=== PATIENT | male | born 1965 | race Caucasian/White ===

== ENCOUNTER 2021-11-25 10:10 | Outpatient (CLI) | payer MEDICARE, SELFPAY ==
[2021-11-25 11:10] LABS: Hematocrit 52.1 % (42.0-52.0); Hemoglobin 17.5 g/dL (14.0-18.0); Mean Corpuscular HGB Conc 33.6 g/dl (32-36); Mean Corpuscular Hemoglobin 31.8 pg (26-34); Mean Corpuscular Volume 94.7 fl (80-100); Platelet Count Result 171 k/mm3 (150-375); Red Cell Distribution Width 12.2 % (11.5-14.5); White Blood Count 10.9 K/mm3 (4.5-10.0)
[2021-11-25 11:28] LABS: Alanine Aminotransferase 54 U/L (6-50); Albumin Level 4.9 g/dL (3.5-5.1); Alkaline Phosphatase 112 U/L (38-126); Anion Gap 11 mmol/L (8-16); Aspartate Amino Transferase 43 U/L (17-59); Bilirubin,Total 1.8 mg/dL (0.2-1.3); Blood Urea Nitrogen 10 mg/dL (9-20); Calcium 9.3 mg/dL (8.4-10.2); Carbon Dioxide 25 mmol/L (22-30); Chloride 100 mmol/L (98-107); Cholesterol 152 mg/dL (0-200); Estimated Glomerular Filt Rate > 60; Glucose 100 mg/dL (65-110); HDL Direct 34 mg/dL; Potassium 3.9 mmol/L (3.4-5.0); Sodium 136 mmol/L (137-145); Triglycerides 224 mg/dL (<150)
[2021-11-25 11:52] LABS: LDL Cholesterol Direct 78 mg/dL
[2021-11-25 11:54] LABS: Prostate Specific Antigen 0.5 ng/mL (< OR = 4.0)
[2021-11-25 12:29] LABS: Folic Acid 4.2 ng/mL (2.76->20)
== END 2021-11-25 10:11 | disposition home or self-care (01) ==
PROVIDERS: PCP Physician Assistant; Visit Provider Physician Assistant
DX: R53.83 Other fatigue (principal); I10 Essential (primary) hypertension; E78.5 Hyperlipidemia, unspecified; Z12.5 Encounter for screening for malignant neoplasm of prostate
CPT/HCPCS: 36415; 80053; 80061; 82607; 82746; 84153; 84443; 85027; G0103

== ENCOUNTER 2022-04-04 18:05 | Emergency (ER) | payer MEDICARE, SELFPAY ==
[2022-04-04] VITALS (19 sets, daily range): BP systolic 161–206; BP diastolic 79–98; PULSE 73–96; RESP 12–25; TEMP 36.7; O2SAT 96–99
--- NOTE | ~2022-04-04 | CT_ITS ---
EXAMINATION: CT abdomen pelvis w con DATE: 04/04/2022 19:09 INDICATION: Left upper quadrant abdominal pain, nausea, vomiting and elevated liver function tests. TECHNIQUE: Computed tomography (CT) of the abdomen and pelvis was performed with 100 mL Omnipaque-350 intravenous contrast. Automated exposure control and iterative reconstruction technique were employe d. The dose-length product was 653.01 mGy-cm. COMPARISON: None FINDINGS: Discoid atelectasis/scarring at the lingula, right middle and right lower lobes. Heart size is normal . No pericardial or pleural effusion. Diffuse hepatic steatosis. Gallbladder, spleen, pancreas, bilat eral adrenal glands and kidneys are normal. No abnormal bowel wall thickening or obstruction. The juan endix is not visualized. No pericecal inflammatory change to suggest acute appendicitis. Bladder is n ormal. No free intraperitoneal gas or fluid. No pathologically enlarged abdominal or pelvic lymphaden opathy. There is calcified atherosclerosis of the normal caliber aorta and many of the other arteries . 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 Mild scattered degenerative skeletal changes in the spine and pelvis. IMPRESSION: 1. No acute intra-abdominal/pelvic process. 2. Diffuse hepatic steatosis. Reviewed, dictated and finalized at location A.
--- NOTE | ~2022-04-04 | XR_ITS ---
EXAMINATION: XR chest 1V portable DATE: 04/04/2022 19:14 INDICATION: Possible COVID presenting with cough and congestion TECHNIQUE: frontal view of the chest was obtained. COMPARISON: CT abdomen and pelvis dated 04/04/2022 at 7:00 PM FINDINGS: Mild opacities at the right lower lung zone with blunting at the costophrenic angle which corresponds to a linear bands of discoid atelectasis/scarring on prior CT. No other airspace opacities, pulmonar y edema, pleural effusion or pneumothorax. The cardiomediastinal silhouette is normal. IMPRESSION: 1. Mild discoid atelectasis/scarring in the right lower lung zone. Reviewed, dictated and finalized at location A.
[2022-04-04 18:31] LABS: Basophils Absolute Auto 0.1 K/mm3 (0.0-0.1); Basophils Percent Auto 0.6 % (0.2-1.2); Eosinophils Percent Auto 0.5 % (0-4.4); Hematocrit 54.5 % (42.0-52.0); Hemoglobin 18.4 g/dL (14.0-18.0); Immature Granulocyte Absolute 0.04 K/mm3 (0.00-0.031); Immature Granulocyte Percent A 0.5 % (0-0.5); Lymphocytes Absolute Auto 1.45 K/mm3 (0.9-3.2); Mean Corpuscular HGB Conc 33.8 g/dl (32-36); Mean Corpuscular Hemoglobin 32.7 pg (26-34); Mean Corpuscular Volume 96.8 fl (80-100); Mean Platelet Volume 10.1 fl (7.4-10.4); Monocytes Absolute Auto 0.8 K/mm3 (0.1-0.6); Monocytes Percent Auto 9.5 % (2.6-8.5); Neutrophils Absolute Auto 6.2 K/mm3 (1.3-6.7); Neutrophils Percent Auto 71.9 % (45.5-73.1); Platelet Count Result 161 k/mm3 (150-375); Red Blood Count 5.63 M/mm3 (4.6-6.20); White Blood Count 8.6 K/mm3 (4.5-10.0)
--- NOTE | 2022-04-04 18:44 | ED.GENADULT ---
HPI - General Adult General Chief complaint: Nausea/Vomiting/Diarrhea Stated complaint: sinuses, n/v, not eating x 2 days Time Seen by Provider: 04/04/22 18:31 Source: patient Mode of arrival: ambulatory Limitations: no limitations History of Present Illness HPI narrative: Patient is a 56-year-old male who presents the ED with multiple complaints. Patient reports he has felt unwell for the past 2 days. He reports having nausea, NBNB vomiting, loss of appetite, muscle aches, left upper quadrant abdominal pain, chills, sweats, cough, sinus congestion. Denies any known exposure to COVID. He is not vaccinated. He has been unable to keep any food or fluid or his medications down today, which prompted his presentation. Denies any diarrhea, constipation, rectal bleeding, documented fever, difficulty breathing, chest pain, IVORY, ST. Patient has a history of CVA in 2017 with residual left-sided deficits. He lives with his son's [id number]. Related Data Allergies Allergy/AdvReac Type Severity Reaction Status Date / Time No Known Allergies Allergy Unverified 04/04/22 18:11 Review of Systems Review of Systems: CONSTITUTIONAL: Reports chills/sweats. Denies fever. ENT: Reports sinus congestion. Denies sore throat. CARDIOVASCULAR: Denies chest pain. RESPIRATORY: Reports cough. Denies dyspnea. GASTROINTESTINAL: Reports LUQ abdominal pain, nausea, vomiting. Denies rectal bleeding, constipation, or diarrhea. MUSCULOSKELETAL: Reports muscle aches. NEUROLOGIC: Denies headache. 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) Depression History of CVA (cerebrovascular accident) History of seizure HTN (hypertension) Hyperlipidemia Surgical History Surgical History (Updated 04/04/22 @ 18:49 by Lupe Chen PA-C) History of colonoscopy Family History Family History Father Patient's father is in good health Hypertension Mother Hypertension Other Family history of arthritis Social History Social History Smoking packs per day: 1 Smoking cigarettes per day: 20.0 Years smoked: 30 Smoking pack-years: 30.00 Smoking status: Current every day smoker Second hand tobacco smoke exposure: No Alcohol intake: current Exam Narrative: GENERAL: Mildly ill-appearing, well-nourished, non-toxic, in no acute distress. HEAD: Normocephalic, atraumatic. NOSE: Normal, no drainage. THROAT: Pharynx clear, no exudate. MMs dry. Poor dentition. NECK: Supple. No adenopathy, no masses. RESPIRATORY: Airway patent, respirations mildly tachypneic, but nonlabored. Coarse breath sounds, occasional rhonchi in lower lobes bilaterally. CARDIOVASCULAR: Borderline tachycardia with regular rhythm without murmurs, rubs, or gallops. Peripheral pulses 2+ and equal bilaterally. ABDOMINAL: Soft, mild tenderness to palpation in LUQ/epigastric region, nondistended, no hepatosplenomegaly. Normoactive BS. MUSCULOSKELETAL: Moves all extremities per baseline. Left sided weakness, chronic per patient's previous CVA. Contracture of L arm/hand. Strength/ROM intact without gross deformities. SKIN: Warm, dry, normal color. No rashes. NEURO: A&O X3. Speech clear. Cranial nerves II-XII grossly intact. Steady gait. No ataxic movements. PSYCHIATRIC: Appropriate mood and affect. Normal interaction. Course Vital Signs Vital signs: Vital Signs Temperature 98.0 F 04/04/22 18:09 Pulse Rate 96 04/04/22 18:09 Respiratory Rate 16 04/04/22 18:09 Blood Pressure 174/79 H 04/04/22 18:09 Pulse Oximetry 98 04/04/22 18:09 Oxygen Delivery Room Air 04/04/22 18:09 Temperature 98.0 F 04/04/22 18:09 Pulse Rate 73 04/04/22 22:35 Respiratory Rate
--- NOTE | 2022-04-04 18:46 | ECG_ITS ---
Measurements Intervals [place] Rate: 85 P: 75 NE: 140 QRS: 63 QRSD: 84 T: 63 QT: 373 QTc: 445 Interpretive Statements SINUS RHYTHM ANTEROSEPTAL INFARCT, AGE INDETERMINATE BORDERLINE ST ABNORMALITY- INFERIOR LEADS BASELINE ARTIFACT- I, II, III, AVL ABNORMAL ECG NO PREVIOUS ECG AVAILABLE FOR COMPARISON Electronically Signed On 04-04-2022 21:54:32 CDT by Long Nagel D.O.
[2022-04-04 18:50] LABS: Alanine Aminotransferase 102 U/L (6-50); Alkaline Phosphatase 144 U/L (38-126); Anion Gap 17 mmol/L (8-16); Aspartate Amino Transferase 106 U/L (17-59); Bilirubin,Total 2.3 mg/dL (0.2-1.3); Blood Urea Nitrogen 12 mg/dL (9-20); Calcium 9.9 mg/dL (8.4-10.2); Carbon Dioxide 18 mmol/L (22-30); Chloride 103 mmol/L (98-107); Estimated CRCL calculation 86 ml/min; Estimated Glomerular Filt Rate > 60; Glucose 141 mg/dL (65-110); Lipase 86 U/L (23-300); Potassium 3.7 mmol/L (3.4-5.0); Sodium 138 mmol/L (137-145)
[2022-04-04] MEDS: SODIUM CHLORIDE 0.9% IV 1,000 ML 999 ML IV CONT ×2 (18:57→20:36)
[2022-04-04] MEDS: ONDANSETRON INJ 4 MG/2 ML VIAL IV PUSH (18:57)
[2022-04-04 19:44] LABS: SARS-CoV-2 RNA PCR Negative
[2022-04-04 20:11] LABS: Troponin I < 0.012 ng/mL (0.000-0.034)
[2022-04-04 21:00] LABS: Appearance Urine Clear (Clear); Bilirubin Urine 1+ (Negative); Blood Urine Negative (Negative); Color Urine Amber (Yellow); Glucose Urine UA Negative (Negative); Ketones Urine 1+ mg/dL (Negative); Leukocyte Esterase Ur Negative LEU/UL (Negative); Nitrate Urine Negative (Negative); Protein Urine Trace mg/dL (Negative); Specific Grav Ur <= 1.005 (1.001-1.035)
[2022-04-04 21:05] LABS: WBC Urine 0-3 /hpf
[2022-04-04 21:16] LABS: Add Urine Microscopic? YES
== END 2022-04-04 22:40 | disposition home or self-care (01) ==
PROVIDERS: Emergency Medicine; Physician Assistant; Emergency Provider General Practice; PCP Physician Assistant
DX: R11.2 Nausea with vomiting, unspecified (principal); E86.0 Dehydration; K76.0 Fatty (change of) liver, not elsewhere classified; Z20.822 Contact with and (suspected) exposure to COVID-19; E78.5 Hyperlipidemia, unspecified; I10 Essential (primary) hypertension; Z28.310 Unvaccinated for COVID-19; Z86.73 Personal history of transient ischemic attack (TIA), and cerebral infarction without residual deficits; F17.210 Nicotine dependence, cigarettes, uncomplicated; R94.31 Abnormal electrocardiogram [ECG] [EKG]
CPT/HCPCS: 36415; 71045; 74177; 80053; 81001; 83690; 84484; 85025; 93005; 96361; 96365; 96375; 99284; C9803; J0131; J2405; J7030; Q9967; U0003; U0005

== ENCOUNTER 2022-09-23 15:50 | Emergency (ER) | payer MEDICARE, SELFPAY ==
[2022-09-23] VITALS (24 sets, daily range): BP systolic 110–153; BP diastolic 57–100; PULSE 71–104; RESP 13–20; TEMP 36.4; O2SAT 96–99
--- NOTE | ~2022-09-23 | CT_ITS ---
EXAMINATION: CTA chest PE protocol DATE: 09/23/2022 18:31 INDICATION: pleuritic L chest pain, elevated dimer TECHNIQUE: Computed tomography angiography (CTA) of the chest was performed with 100 mL Omnipaque-350 intravenous contrast timed to evaluate the pulmonary arteries. Coronal maximum intensity projection 3D-reconstructions were created by the technologist. The dose-length product (DLP) was 735.17 mGy-cm. Automated exposure control and iterative reconstruction technique were employed. COMPARISON: None. FINDINGS: Lung parenchyma and airways: 1.2 cm irregular opacity in the left lower lobe. Bibasilar scar/atelecta sis. Somewhat nodular opacification/scarring along the minor fissure. Pleura: Unremarkable. Thoracic inlet, axillae and chest wall: Unremarkable. Thoracic aorta: Minimal arch calcification. Mediastinum: Normal. Heart and pericardium: Normal. Coronary artery calcifications: Mild. Upper abdomen: Diffuse fatty infiltration of the liver. Bones: No acute osseous finding. Pulmonary arteries: Study quality: Adequate. No pulmonary emboli detected. IMPRESSION: No CT evidence of acute pulmonary embolus. Irregular left lower lobe opacity, possibly infectious/inf lammatory, recommend follow-up low-dose noncontrast CT of the chest in 3 months to assess for resolut ion. Steatosis. Reviewed, dictated and finalized at location K. IMPRESSION: No CT evidence of acute pulmonary embolus. Irregular left lower lobe opacity, p ossibly infectious/inflammatory, recommend follow-up low-dose noncontrast CT of the chest in 3 months to assess for resolution. Steatosis.
--- NOTE | ~2022-09-23 | XR_ITS ---
EXAMINATION: XR chest 2V Exam Date/Time: 09/23/2022 16:10 CDT HISTORY: chest pain LT LOW/FLANK PAIN NON INJ Comparison: 04/04/2022. RESULT: Lines, tubes, and devices: None. Lungs and pleura: Emphysematous change. Streaky bibasilar opacities, greater in the right lower lung . Chronic right pleural parenchymal scarring. Cardiomediastinal silhouette: Stable. Other: No acute osseous or upper abdominal finding. IMPRESSION: No acute cardiopulmonary process. Reviewed, dictated and finalized at location K.
--- NOTE | 2022-09-23 15:53 | ECG_ITS ---
Measurements Intervals [place] Rate: 92 P: 78 DE: 155 QRS: 61 QRSD: 84 T: 53 QT: 358 QTc: 444 Interpretive Statements SINUS RHYTHM POSSIBLE RIGHT ATRIAL ENLARGEMENT POSSIBLE LEFT ATRIAL ENLARGEMENT CANNOT RULE OUT SEPTAL INFARCT, AGE INDETERMINATE NONSPECIFIC ST & T-WAVE ABNORMALITY- INF/LAT LEADS BASELINE ARTIFACT- I, II, AVR, AVL, AVF ABNORMAL ECG COMPARED TO ECG 04/04/2022 19:18:23 NO SIGNIFICANT CHANGES Electronically Signed On 09-23-2022 21:37:37 CDT by Logn Nagel D.O.
[2022-09-23 16:15] LABS: Basophils Absolute Auto 0.1 K/mm3 (0.0-0.1); Basophils Percent Auto 0.6 % (0.2-1.2); Eosinophils Absolute Auto 0.2 K/mm3 (0-0.3); Eosinophils Percent Auto 2.1 % (0-4.4); Hematocrit 51.2 % (42.0-52.0); Hemoglobin 17.4 g/dL (14.0-18.0); Immature Granulocyte Absolute 0.04 K/mm3 (0.00-0.031); Immature Granulocyte Percent A 0.4 % (0-0.5); Lymphocytes Absolute Auto 1.93 K/mm3 (0.9-3.2); Lymphocytes Percent Auto 19.9 % (18.3-44.2); Mean Corpuscular Hemoglobin 33.1 pg (26-34); Mean Corpuscular Volume 97.5 fl (80-100); Mean Platelet Volume 10.4 fl (7.4-10.4); Monocytes Absolute Auto 0.6 K/mm3 (0.1-0.6); Monocytes Percent Auto 6.2 % (2.6-8.5); Neutrophils Absolute Auto 6.9 K/mm3 (1.3-6.7); Neutrophils Percent Auto 70.8 % (45.5-73.1); Platelet Count Result 185 k/mm3 (150-375); Red Blood Count 5.25 M/mm3 (4.6-6.20); Red Cell Distribution Width 12.1 % (11.5-14.5); White Blood Count 9.7 K/mm3 (4.5-10.0)
[2022-09-23 16:24] LABS: Alanine Aminotransferase 71 U/L (6-50); Albumin Level 4.6 g/dL (3.5-5.1); Alkaline Phosphatase 98 U/L (38-126); Anion Gap 9 mmol/L (8-16); Aspartate Amino Transferase 69 U/L (17-59); Bilirubin,Total 1.9 mg/dL (0.2-1.3); Blood Urea Nitrogen 9 mg/dL (9-20); Calcium 9.2 mg/dL (8.4-10.2); Carbon Dioxide 28 mmol/L (22-30); Chloride 98 mmol/L (98-107); Estimated CRCL calculation 85 ml/min; Estimated Glomerular Filt Rate > 60; Glucose 130 mg/dL (65-110); Lipase 151 U/L (23-300); Potassium 3.4 mmol/L (3.4-5.0); Sodium 135 mmol/L (137-145)
[2022-09-23 16:25] LABS: INR 1.3; Prothrombin Time 15.2 Seconds (11.1-14.7)
[2022-09-23 16:26] LABS: Partial Thromboplastin Time 30.9 SECONDS (22.3-36.8)
[2022-09-23 16:36] LABS: Troponin I < 0.012 ng/mL (0.000-0.034)
--- NOTE | 2022-09-23 17:42 | ED.CHESTPAIN ---
HPI - Chest Pain General Chief Complaint: Chest Pain Stated Complaint: diarrhea Time Seen by Provider: 09/23/22 16:54 History of Present Illness HPI narrative: Patient is a 57-year-old male with a history of prior stroke, hypertension, seizure disorder presenting with chest pain. Patient states that he has had a viral URI for the last week. States he has a lot of sinus and chest congestion. States he has had a persistent cough. He also complains that he has some lower left chest pain that is worse with movement and taking deep breaths. Reports several days of diarrhea. Reports mild shortness of breath. Denies fevers, headache, focal numbness or weakness, abdominal pain, vomiting, dysuria, leg swelling. Patient states that he does still smoke about 1 pack of cigarettes per day. 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) Depression History of CVA (cerebrovascular accident) History of seizure HTN (hypertension) Hyperlipidemia Surgical History Surgical History History of colonoscopy Family History Family History Father Patient's father is in good health Hypertension Mother Hypertension Other Family history of arthritis Social History Social History (Updated 09/28/22 @ 10:05 by Megan Solano CMA) Smoking packs per day: 1 Smoking cigarettes per day: 20.0 Years smoked: 30 Smoking pack-years: 30.00 Smoking status: Current every day smoker Second hand tobacco smoke exposure: No Alcohol intake: current Substance use: unknown Lack of Transportation: No Lack of Food: Sometimes True Current Housing: Decline to Answer Concerned About Future Housing: Decline to Answer Difficulty Paying Gas/Electric Bills: Decline to Answer Difficulty Paying for Meds: Decline to Answer Currently Unemployed: Decline to Answer Education: Decline to Answer Difficulty w/ Childcare or Family Care: Decline to Answer Exam Narrative: GENERAL: Well-appearing, well-nourished, and in no acute distress. HEAD: Normocephalic, atraumatic. EYES: PERRLA and EOMI. ENT: + Nasal congestion. Mucous membranes moist. NECK: Supple. CHEST: No respiratory distress. Scattered wheezing bilaterally, no crackles HEART: Regular rate and rhythm. No murmur heard. Normal peripheral pulses. ABDOMEN: Soft, nontender, nondistended EXTREMITIES: Normal range of motion. No edema. SKIN: Warm, dry, no rash. NEURO: No focal deficits. Alert and oriented x3. PSYCH: Normal mood and affect. Course Vital Signs Vital signs: Vital Signs Temperature 97.6 F 09/23/22 15:55 Pulse Rate 104 H 09/23/22 15:55 Respiratory Rate 18 09/23/22 15:55 Blood Pressure 115/68 09/23/22 15:55 Pulse Oximetry 96 09/23/22 15:55 Oxygen Delivery Room Air 09/23/22 15:55 Temperature 97.6 F 09/23/22 15:55 Pulse Rate 71 09/23/22 21:57 Respiratory Rate 16 09/23/22 21:57 Blood Pressure 125/82 09/23/22 21:57 Pulse Oximetry 98 09/23/22 21:57 Oxygen Delivery Room Air 09/23/22 16:27 MDM - Chest Pain MDM Narrative Medical decision making narrative: Patient is a 57-year-old male presenting with URI symptoms and chest pain. Vitals within normal limits. Exam remarkable for the above. He is wheezing bilaterally. States that he still smokes about a pack a day. Will order a breathing treatment. Plan for blood work, chest x-ray, fluids, COVID and influenza, dimer. EKG per my interpretation shows normal sinus rhythm, normal axis, nonspecific T wave guaman
[2022-09-23] MEDS: LACTATED RINGERS 1,000 ML 999 ML IV CONT (17:46)
[2022-09-23] MEDS: IPRATROPIUM BR 0.02% INH SOLN 0.5 MG/2.5 ML VIAL INHALATION (17:55)
[2022-09-23] MEDS: ALBUTEROL SULFATE NEB 2.5 MG/3 ML INH 5 MG INHALATION (17:55)
[2022-09-23 17:59] LABS: D Dimer 0.76 ug/mL (<0.48)
[2022-09-23 18:44] LABS: Influenza A QL RT-PCR Negative (Negative); Influenza B QL RT-PCR Negative (Negative); RSV RNA, RT-PCR Negative (Negative); SARS-CoV-2 RNA PCR Negative
[2022-09-23 19:46] LABS: Troponin I < 0.012 ng/mL (0.000-0.034)
== END 2022-09-23 21:57 | disposition home or self-care (01) ==
PROVIDERS: Emergency Medicine; Emergency Provider Emergency Medicine; PCP Physician Assistant
DX: J06.9 Acute upper respiratory infection, unspecified (principal); J44.9 Chronic obstructive pulmonary disease, unspecified; I10 Essential (primary) hypertension; E78.5 Hyperlipidemia, unspecified; R26.9 Unspecified abnormalities of gait and mobility; I69.398 Other sequelae of cerebral infarction; F32.A Depression, unspecified; F17.210 Nicotine dependence, cigarettes, uncomplicated; Z20.822 Contact with and (suspected) exposure to COVID-19
CPT/HCPCS: 36415; 71046; 71275; 80053; 83690; 84484; 85025; 85380; 85610; 85730; 87637; 93005; 94640; 96360; 99284; J7120; Q9967

== ENCOUNTER 2023-01-30 14:58 | Outpatient (CLI) | payer MEDICARE, SELFPAY ==
--- NOTE | ~2023-01-30 | CT_ITS ---
CT Scan of the Chest without Contrast: Clinical Indication: Left-sided rib pain Technique: Contiguous sections were acquired throughout the chest without intravenous contrast. Dose reduction technique was used on this scan by utilizing automated exposure control and iterative recon struction technique. The dose-length product (DLP) was 302.30 mGy-cm. COMPARISON: 09/23/2022 Findings: There is no evidence of any significant mediastinal, hilar or axillary lymphadenopathy. Coronary atul ry calcifications are present. There is no evidence of pleural or pericardial effusion. There is linear right basilar scarring or atelectasis. No suspicious pulmonary nodule or other consol idation seen. Images through the upper abdomen reveal probable diffuse fatty infiltration of the liver. Impression: Linear right basilar scarring or atelectasis, otherwise clear lungs. Probable diffuse fatty infiltration of liver. Reviewed, dictated and finalized at [facility]. Impression: Linear right basilar scarring or atelectasis, otherwise clear lungs. Probable diffuse fatty infiltration of liver.
== END 2023-01-30 14:59 | disposition home or self-care (01) ==
LOC: ANHIMG 15:00
PROVIDERS: PCP Physician Assistant; Visit Provider Physician Assistant
DX: R91.8 Other nonspecific abnormal finding of lung field (principal); K76.0 Fatty (change of) liver, not elsewhere classified
CPT/HCPCS: 71250

== ENCOUNTER 2024-07-04 13:57 | Outpatient (CLI) | payer MEDICARE, SELFPAY ==
[2024-07-04 15:12] LABS: Basophils Absolute Auto 0.1 K/mm3 (0.0-0.1); Eosinophils Absolute Auto 0.1 K/mm3 (0-0.3); Eosinophils Percent Auto 1.7 % (0-4.4); Hematocrit 52.8 % (42.0-52.0); Immature Granulocyte Absolute 0.02 K/mm3 (0.00-0.031); Immature Granulocyte Percent A 0.3 % (0-0.5); Immature Platelet Fraction Pct 7.5 % (0.9-11.2); Lymphocytes Absolute Auto 1.75 K/mm3 (0.9-3.2); Lymphocytes Percent Auto 24.1 % (18.3-44.2); Mean Corpuscular HGB Conc 34.1 g/dl (32-36); Mean Corpuscular Volume 99.6 fl (80-100); Mean Platelet Volume 10.8 fl (7.4-10.4); Monocytes Absolute Auto 0.5 K/mm3 (0.1-0.6); Monocytes Percent Auto 6.5 % (2.6-8.5); Neutrophils Absolute Auto 4.8 K/mm3 (1.3-6.7); Neutrophils Percent Auto 66.4 % (45.5-73.1); Platelet Count Result 110 k/mm3 (150-375); Red Cell Distribution Width 11.9 % (11.5-14.5); White Blood Count 7.3 K/mm3 (4.5-10.0)
[2024-07-04 15:21] LABS: Alanine Aminotransferase 72 U/L (6-50); Albumin Level 4.3 g/dL (3.5-5.1); Alkaline Phosphatase 89 U/L (38-126); Anion Gap 4 mmol/L (4-12); Aspartate Amino Transferase 79 U/L (17-59); Bilirubin,Total 1.9 mg/dL (0.2-1.3); Blood Urea Nitrogen 11 mg/dL (9-20); Calcium 9.9 mg/dL (8.4-10.2); Carbon Dioxide 29 mmol/L (22-30); Chloride 104 mmol/L (98-107); Cholesterol 139 mg/dL (0-200); Estimated Glomerular Filt Rate > 60; Glucose 84 mg/dL (65-110); HDL Direct 25 mg/dL; Potassium 4.5 mmol/L (3.4-5.0); Sodium 137 mmol/L (137-145); Triglycerides 122 mg/dL (<150)
[2024-07-04 15:31] LABS: LDL Cholesterol Direct 79 mg/dL
[2024-07-04 15:51] LABS: Prostate Specific Antigen 0.3 ng/mL (< OR = 4.0)
== END 2024-07-04 13:58 | disposition home or self-care (01) ==
LOC: ANHLAB 14:36
PROVIDERS: PCP Internal Medicine; Visit Provider Internal Medicine
DX: E78.5 Hyperlipidemia, unspecified (principal); I10 Essential (primary) hypertension; R63.4 Abnormal weight loss; R53.83 Other fatigue; Z12.5 Encounter for screening for malignant neoplasm of prostate
CPT/HCPCS: 36415; 80053; 80061; 84153; 84443; 85025; 85055; G0103

== ENCOUNTER 2024-08-15 11:39 | Outpatient (CLI) | payer MEDICARE, BC, SELFPAY ==
--- NOTE | ~2024-08-15 | US_ITS ---
EXAM: ABDOMEN ULTRASOUND HISTORY: R74.8 - Abnormal levels of other serum enzymes COMPARISON: Reference is made to a CT examination of the abdomen and pelvis dated 04/04/2022 FINDINGS: LIVER: The liver is increased in echogenicity and size measuring 21 cm in longitudinal dimension. The portal vein is patent demonstrating hepatopedal flow. The contour of the liver is smooth. GALLBLADDER: Avascular 11 mm focus of decreased echogenicity for which a polyp is suspected. No gallb ladder wall thickening or pericholecystic fluid. BILE DUCTS: Common bile duct measures 3.4mm. PANCREAS: Limited evaluation of the pancreas secondary to overlying bowel gas RIGHT KIDNEY: 13.9 cm. In length. No hydronephrosis or bulky renal calculi. VASCULATURE : The abdominal aorta is nonaneurysmal. The IVC is patent. IMPRESSION: Cholelithiasis, without ultrasound evidence of cholecystitis.. Reviewed, dictated and finalized at location A. ING ADVISOR
== END 2024-08-15 11:40 | disposition home or self-care (01) ==
PROVIDERS: PCP Internal Medicine; Visit Provider Internal Medicine
DX: K80.20 Calculus of gallbladder without cholecystitis without obstruction (principal); R74.8 Abnormal levels of other serum enzymes; D69.6 Thrombocytopenia, unspecified
CPT/HCPCS: 76705